=== PATIENT | female | born 1950 | race Caucasian/White ===

== ENCOUNTER 2018-06-06 14:08 | Emergency (ER) | payer OTHER ==
[~2018-06-06] VITALS: Ht 157.5 cm; Wt 81.2 kg
[~2018-06-06 14:08] MED LIST: BENICAR HCT 40/1 TAB; CARDURA1 MG; LIPITOR20 MG; SYNTHROID125 MCG
== END 2018-06-06 19:13 | disposition home or self-care (01) ==
LOC: ER 14:08
DX: K52.89 Other specified noninfective gastroenteritis and colitis (principal)